=== PATIENT | female | born 1985 | race Caucasian/White ===

== ENCOUNTER → 2016-07-02 | Outpatient (CLI) | payer BC, MEDICAID, OTHER ==
[~2016-07-02] MED LIST: ACHD5005 PO; ALBU8.5H2 IH; IBP600T1 PO; PREN-136 PO
--- NOTE | 2016-07-02 10:50 | Diagnostic Imaging Report ---
First trimester OB ultrasound. INDICATION: Dating. FINDINGS: There is a normal-appearing single intrauterine . An embryo is seen with cardiac activity at 155 beats per minute. The crown-rump length is at 11 weeks and 2 days. IRAM is 01/19/17. The ovaries are obscured by bowel gas IMPRESSION: Live single intrauterine . Dictated by: Dictated on workstation # [id number]
== END ==
LOC: RAD 10:21
PROVIDERS: ATTEND Family Medicine
DX: Z36 Encounter for antenatal screening of mother (principal); Z3A.11 11 weeks gestation of pregnancy
CPT/HCPCS: 76801

== ENCOUNTER → 2016-09-03 | Outpatient (CLI) | payer MEDICAID ==
--- NOTE | 2016-09-03 12:54 | Diagnostic Imaging Report ---
INDICATION: care. survey. TECHNIQUE: Multiple real-time grayscale images were obtained over the gravid uterus. COMPARISON: 07/02/2016. FINDINGS: The heart rate is 135 beats per minute. The placenta is anterior. No placenta previa. The cervix appears closed and is approximately 4.9 cm in length. The four-chamber view, bladder, three-vessel cord, cord insertion, the lateral ventricles, the posterior fossa, kidneys, and stomach appear unremarkable. The spine is not well seen due to position. Biometrical measurements are as follows: Biparietal 4.94 cm, age 21 weeks 0 days. Head circumference 18.00 cm, age 20 weeks 4 days. Abdominal circumference 15.22 cm, age 20 weeks 4 days. Femur length 3.5 cm, age 21 weeks 1 days. Sonographic estimate age: 20 weeks 6 days. This compares to dating by IRAM of 01/19/2017 of 20 weeks and 2 days. Sonographic estimated date of delivery: 01/15/17. Estimated Weight: 372 gm (+/- 54 gm). LMP percentile: 69%. heart rate: 135 beats per minute. number: 1 of 1. IMPRESSION: The spine is not well seen due to position. Followup study within two weeks is recommended to reevaluate. Dictated by: Dictated on workstation # [id number]
== END ==
LOC: RAD 10:36
PROVIDERS: ATTEND Family Medicine
DX: Z36 Encounter for antenatal screening of mother (principal); Z3A.20 20 weeks gestation of pregnancy
CPT/HCPCS: 76805

== ENCOUNTER 2016-09-13 15:25 | Outpatient (CLI) | payer MEDICAID ==
[~2016-09-13] VITALS: Ht 165.1 cm; Wt 101.2 kg
[2016-09-13 16:00] VITALS: BP 122/64
[2016-09-13 16:29] LABS: BILIRUBIN,URINE NEGATIVE (NEGATIVE); KETONES,URINE NEGATIVE (NEGATIVE); LEUKOCYTE ESTERASE ,URINE 3+ (NEGATIVE); NITRITE,URINE NEGATIVE (NEGATIVE); PH,URINE 7 (5-9); PROTEIN,URINE NEGATIVE (NEGATIVE); UROBILINOGEN,URINE NORMAL (NORMAL)
[2016-09-13 16:39] LABS: SQUAMOUS EPITHELIAL CELL,UR 0-2 /HPF; WBC,URINE 25-50 /HPF
[2016-09-13 16:54] LABS: BASOPHILS % (AUTO) 0 % (0-10); EOSINOPHILS # (AUTO) 0.1 10^3/uL (0.0-0.3); EOSINOPHILS % (AUTO) 1 % (0-10); LYMPHOCYTES # (AUTO) 1.8 X 10^3 (1.0-4.0); LYMPHOCYTES % (AUTO) 19 % (12-44); MEAN CORPUSCULAR HEMOGLOBIN 31 PG (25-34); MEAN CORPUSCULAR HGB CONC 34 G/DL (32-36); MEAN CORPUSCULAR VOLUME 91 FL (80-99); MEAN PLATELET VOLUME 10.7 FL (7.4-10.4); MONOCYTES # (AUTO) 0.5 X 10^3 (0.0-1.0); MONOCYTES % (AUTO) 6 % (0-12); NEUTROPHILS % (AUTO) 74 % (42-75); PLATELET COUNT 243 10^3/uL (130-400); RED BLOOD COUNT 3.72 10^6/uL (4.35-5.85); RED CELL DISTRIBUTION WIDTH 13.8 % (10.0-14.5); WHITE BLOOD COUNT 9.4 10^3/uL (4.3-11.0)
[2016-09-13 17:11] LABS: ALANINE AMINOTRANSFERASE 11 U/L (0-55); ALBUMIN 3.2 GM/DL (3.2-4.5); ANION GAP 11 MMOL/L (5-14); ASPARTATE AMINO TRANSFERASE 7 U/L (5-34); BILIRUBIN,TOTAL 0.3 MG/DL (0.1-1.0); BLOOD UREA NITROGEN 8 MG/DL (7-18); BUN/CREATININE RATIO 15; CALCIUM 8.1 MG/DL (8.5-10.1); CARBON DIOXIDE 16 MMOL/L (21-32); CHLORIDE 110 MMOL/L (98-107); CREATININE SERUM 0.53 MG/DL (0.60-1.30); GFR ESTIMATED > 60; GLUCOSE 70 MG/DL (70-105); POTASSIUM 3.5 MMOL/L (3.6-5.0); SODIUM 137 MMOL/L (135-145); hs C REACTIVE PROTEIN 1.28 MG/DL (0.00-0.50)
[2016-09-13] MEDS ORDERED: NITR-65 PO (17:38)
[2016-09-13 17:40] VITALS: BP 122/64
--- NOTE | 2016-09-14 13:19 | Physician Query-Final Dx ---
BELINDA CHANDRA 09/14/16 1319: Clinic Account Progress/Dx Physician Query: Please give diagnosis Date of Service Sep 13, 2016 at 15:25 JENNIFER SRIVASTAVA DO 10/03/16 0944: Clinic Account Progress/Dx DIAGNOSIS: Diagnosis 1. 22 week gestation 2. abdominal pain 3. UTI BELINDA CHANDRA Sep 14, 2016 13:19 JENNIFER SRIVASTAVA DO Oct 03, 2016 09:44
== END 2016-09-13 17:40 | disposition home or self-care (01) ==
LOC: WSo 15:25 → LDRP 15:26 → WSo 17:40
PROVIDERS: ATTEND Family Medicine
DX: O23.42 Unspecified infection of urinary tract in pregnancy, second trimester (principal); O99.89 Other specified diseases and conditions complicating pregnancy, childbirth and the puerperium; R10.31 Right lower quadrant pain; Z3A.22 22 weeks gestation of pregnancy
CPT/HCPCS: 36415; 80053; 81000; 85025; 86141; 87088; 99213

== ENCOUNTER → 2016-10-28 | Outpatient (CLI) | payer MEDICAID ==
[~2016-10-28] MED LIST changes: +IBUP-1773 PO; +NITR-65 PO
--- NOTE | 2016-10-28 12:10 | Diagnostic Imaging Report ---
INDICATION: Large for gestational age, followup exam for evaluation of the spine. TECHNIQUE: Multiple Real-time grayscale images were obtained over the gravid uterus. COMPARISON: 07/02/2016 and 09/03/2016. FINDINGS: The previous OB ultrasound exam of 09/03/2016 noted a single live fetus of approximately 20 weeks 2 days gestation plus/minus 1 week. On this exam, the fetus is again identified. The fetus is cephalic in presentation. heart motion is noted and a rate of 124 BPM is recorded. On the previous exam, the spine was not well imaged. On this study, the spine is imaged and appears to be within normal limits. There are no abnormalities identified. In the interval since the prior study, however, mild polyhydramnios has developed. The amniotic fluid index is 24.7 (normal 8-22 cm). The placenta is anterior and there is no previa. The growth parameters are fairly uniform and have progressed as expected since the prior exam, tending towards the high end of normal. The cervix is identified and measures 4.2 cm in length. The cervix is closed. IMPRESSION: 1. There is a single live fetus is cephalic presentation at approximately 28 weeks 1 day gestation plus/minus 1 week. The EDC remains 01/19/2017. 2. There are no abnormalities identified. In particular, the spine appears to be within normal limits. 3. Mild polyhydramnios has developed. This is of uncertain etiology. 4. The growth parameters are fairly uniform and have progressed as expected since the prior exam, tending towards the high side of normal. 5. These results were discussed with Dr. Meliza Lopez's nurse. CRITICAL FINDING: Biometrical measurements are as follows: Biparietal 7.64 cm, age 30 weeks 5 days. Head circumference 27.74 cm, age 30 weeks 3 days. Abdominal circumference 25.91 cm, age 30 weeks 1 days. Femur length 5.62 cm, age 29 weeks 4 days. Sonographic estimate age: 30 weeks 2 days. Sonographic estimated date of delivery: 01/03/2017. Estimated Weight: 1487 gm (+/- 217 gm). LMP percentile: 95%. heart rate: 124 beats per minute. number: 1 of 1. Dictated by: Dictated on workstation # [id number]
== END ==
LOC: RAD 10:27
PROVIDERS: ATTEND Family Medicine
DX: Z36 Encounter for antenatal screening of mother (principal); Z3A.28 28 weeks gestation of pregnancy
CPT/HCPCS: 76816

== ENCOUNTER → 2016-11-11 | Outpatient (CLI) | payer MEDICAID | LOC: LAB 11:06 | PROVIDERS: ATTEND Family Medicine | DX: O40.3XX0 Polyhydramnios, third trimester, not applicable or unspecified; Z3A.00 Weeks of gestation of pregnancy not specified | CPT/HCPCS: 36415; 82951; 82952; 82962 ==